=== PATIENT | female | born 1995 | race African-American/Black ===

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

== ENCOUNTER 2017-01-10 15:49 | Emergency (ER) | payer OTHER ==
[~2017-01-10] VITALS: Ht 165.1 cm; Wt 73.7 kg
[~2017-01-10 15:49] MED LIST changes: +SUDAFED 12-HOU120 MG PO; +ZYRTEC10 M2 PO
[2017-01-10 16:15] LABS: MCHC 32.8 G/DL (30.0-36.0); MCV 82.5 FL (83-99); RBC DIS.WIDTH-CV 13.8 % (11.8-14.6); RED BLOOD COUNT 4.85 M/uL (3.80-5.20); WHITE BLOOD COUNT 6.9 K/uL (4.1-10.2)
[2017-01-10 16:38] LABS: QUANTITATIVE HCG < 4.0 MIU/ML
[2017-01-10 16:41] LABS: CHLORIDE 105 mEq/L (99-109); POTASSIUM 4.2 mEq/L (3.7-5.4); SODIUM 137 mEq/L (136-147)
[2017-01-10 16:43] LABS: GLUCOSE 94 mg/dL (70-99)
[2017-01-10 16:44] LABS: ANION GAP 9 MEQ/L (2-14)
[2017-01-10 16:45] LABS: TOTAL BILIRUBIN 0.4 mg/dL (0.0-1.0)
[2017-01-10 16:47] LABS: ALKALINE PHOSPHATASE 66 IU/L (3-129); GFR ESTIMATE (CALCULATED) > 59 mL/min/
[2017-01-10 16:48] LABS: UREA NITROGEN (BUN) 11 mg/dL (9-23)
[2017-01-10 16:50] LABS: LIPASE 38 U/L (1.0-51.0)
[2017-01-10 17:25] LABS: ADD MIUA? YES; BILIRUBIN NEGATIVE; BLOOD NEGATIVE; COLOR YELLOW ((YELLOW)); GLUCOSE (STRIP) NEGATIVE; KETONES NEGATIVE; LEUKOCYTES SMALL; NITRITE NEGATIVE; PROTEIN (STRIP) NEGATIVE; SPECIFIC GRAVITY 1.023 (1.000-1.030)
[2017-01-10 17:27] LABS: MEAN PLAT.VOLUME 11.8 uM^3 (9.5-12.4); PLAT.SUFFICIENCY ADEQUATE; PLATELET COUNT 200 K/uL (156-360)
[2017-01-10 17:52] LABS: BACTERIA RARE /HPF; CASTS NONE SEEN /LPF; EPITHELIAL CELLS 4+ /HPF; MUCUS 2+ /LPF; RED BLOOD CELLS NONE SEEN /HPF (0-5); UCUL ADDED? NO; WHITE BLOOD CELLS 0-5 /HPF (0-5)
[2017-01-10] MEDS ORDERED: BENTYL20 MG PO (20:04)
[2017-01-10] MEDS ORDERED: ZOFRAN ODT4 MG PO (20:04)
[2017-01-10] MEDS ORDERED: MOTRIN800 MG PO (21:01)
[2017-01-10 21:17] VITALS: BP 119/56
== END 2017-01-10 21:19 | disposition home or self-care (01) ==
LOC: EME 15:49
DX: R10.31 Right lower quadrant pain (principal); R11.2 Nausea with vomiting, unspecified; R30.0 Dysuria; R68.83 Chills (without fever)
CPT/HCPCS: 76856; 80053; 81003; 83690; 84702; 85027; 87086; 99281; 99284

== ENCOUNTER 2017-03-21 16:00 | Emergency (ER) | payer OTHER ==
[~2017-03-21] VITALS: Ht 165.1 cm; Wt 73.3 kg
[~2017-03-21 16:00] MED LIST changes: +BENTYL20 MG PO; +MOTRIN800 MG PO
[2017-03-21 17:17] LABS: HEMATOCRIT 39.1 % (36.0-46.0); MCH 27.4 PG (29.0-34.0); MEAN PLAT.VOLUME 11.7 uM^3 (9.5-12.4); PLATELET COUNT 184 K/uL (156-360); RBC DIS.WIDTH-CV 14.3 % (11.8-14.6); RBC DIS.WIDTH-SD 43.5 % (39-53); RED BLOOD COUNT 4.71 M/uL (3.80-5.20); WHITE BLOOD COUNT 7.2 K/uL (4.1-10.2)
[2017-03-21 17:26] LABS: CHLORIDE 109 mEq/L (99-109); POTASSIUM 4.2 mEq/L (3.7-5.4); SODIUM 140 mEq/L (136-147)
[2017-03-21 17:28] LABS: GLUCOSE 83 mg/dL (70-99)
[2017-03-21 17:30] LABS: ANION GAP 7 MEQ/L (2-14); TOTAL BILIRUBIN 0.2 mg/dL (0.0-1.0)
[2017-03-21 17:32] LABS: ALKALINE PHOSPHATASE 61 IU/L (3-129); GFR ESTIMATE (CALCULATED) > 59 mL/min/
[2017-03-21 17:33] LABS: UREA NITROGEN (BUN) 17 mg/dL (9-23)
[2017-03-21 17:35] LABS: LIPASE 39 U/L (1.0-51.0)
[2017-03-21 17:41] LABS: QUANTITATIVE HCG < 4.0 MIU/ML
[2017-03-21 18:01] LABS: ADD MIUA? YES; BILIRUBIN NEGATIVE; BLOOD SMALL; COLOR YELLOW ((YELLOW)); GLUCOSE (STRIP) NEGATIVE; KETONES NEGATIVE; LEUKOCYTES NEGATIVE; NITRITE NEGATIVE; PROTEIN (STRIP) NEGATIVE; SPECIFIC GRAVITY 1.021 (1.000-1.030); UROBILINOGEN 0.2 MG/DL (0.2-1.0)
[2017-03-21 18:06] LABS: BACTERIA NONE SEEN /HPF; EPITHELIAL CELLS RARE /HPF; MUCUS TRACE /LPF; RED BLOOD CELLS 0-5 /HPF (0-5); UCUL ADDED? NO; WHITE BLOOD CELLS 0-5 /HPF (0-5)
[2017-03-21] MEDS ORDERED: PONSTEL250 MG PO (23:14)
[2017-03-21] MEDS ORDERED: VIBRAMYCIN100 MG PO (23:33)
[2017-03-21 23:47] VITALS: BP 121/78
[2017-03-23 12:21] LABS: CHLAMYDIA TRACHOMATIS NEGATIVE; NEISSERIA GONORRHOEAE NEGATIVE
== END 2017-03-21 23:51 | disposition home or self-care (01) ==
LOC: EME 16:00
PROVIDERS: Physician Assistant
DX: N73.9 Female pelvic inflammatory disease, unspecified (principal); F17.200 Nicotine dependence, unspecified, uncomplicated; N83.201 Unspecified ovarian cyst, right side; N94.6 Dysmenorrhea, unspecified; F31.9 Bipolar disorder, unspecified
CPT/HCPCS: 76856; 80053; 81003; 83690; 84702; 85027; 87210; 87491; 87591; 99281; 99285; J0696; J3010

== ENCOUNTER 2017-04-15 10:38 | Emergency (ER) | payer OTHER ==
[~2017-04-15] VITALS: Ht 157.5 cm; Wt 70.9 kg
[~2017-04-15 10:38] MED LIST changes: +PONSTEL250 MG PO
[2017-04-15] MEDS ORDERED: PHENERGAN1.25 MG/ML PO (12:11)
[2017-04-15] MEDS ORDERED: BIAXIN500 MG PO (12:11)
[2017-04-15 13:13] LABS: EOSINOPHIL (%) 2.9 % (0-5); EOSINOPHIL COUNT 0.3 K/uL (0-0.3); HEMATOCRIT 42.5 % (36.0-46.0); IMMATURE GRANULOCYTE (%) 0.3 % (0.0-0.7); INSTRUMENT ABS NEUTROPHIL CT 6.4 K/uL; LYMPHOCYTE COUNT 1.7 K/uL (1.0-2.8); MCH 27.1 PG (29.0-34.0); MCHC 32.9 G/DL (30.0-36.0); MCV 82.4 FL (83-99); MONOCYTE (%) 8.3 % (3-12); MONOCYTE COUNT 0.8 K/uL (0-0.8); NEUTROPHIL (%) 69.6 % (45-76); NEUTROPHIL COUNT 6.4 K/uL (1.8-6.4); PLATELET COUNT 160 K/uL (156-360); RBC DIS.WIDTH-CV 13.4 % (11.8-14.6); RBC DIS.WIDTH-SD 40.3 % (39-53); RED BLOOD COUNT 5.16 M/uL (3.80-5.20); WHITE BLOOD COUNT 9.2 K/uL (4.1-10.2)
[2017-04-15 13:21] LABS: CHLORIDE 103 mEq/L (99-109); POTASSIUM 3.2 mEq/L (3.7-5.4); SODIUM 138 mEq/L (136-147)
[2017-04-15 13:22] LABS: GLUCOSE 88 mg/dL (70-99)
[2017-04-15 13:24] LABS: ANION GAP 13 MEQ/L (2-14)
[2017-04-15 13:26] LABS: GFR ESTIMATE (CALCULATED) > 59 mL/min/
[2017-04-15 13:27] LABS: UREA NITROGEN (BUN) 8 mg/dL (9-23)
[2017-04-15] MEDS ORDERED: PREDNISONE50 MG PO ×2 (13:51→14:11)
[2017-04-15] MEDS ORDERED: PROAIR HFA8.5 GM IH ×2 (13:51→14:11)
[2017-04-15 14:15] VITALS: BP 121/66
== END 2017-04-15 14:39 | disposition home or self-care (01) ==
LOC: EME 10:38
PROVIDERS: Emergency Medicine
DX: J20.9 Acute bronchitis, unspecified (principal); R06.2 Wheezing; Z87.891 Personal history of nicotine dependence
CPT/HCPCS: 71020; 80048; 85025; 85379; 93005; 94640; 99281; 99284; J7512

== ENCOUNTER 2017-04-28 15:06 | Emergency (ER) | payer OTHER ==
[~2017-04-28] VITALS: Ht 162.6 cm; Wt 70.1 kg
[~2017-04-28 15:06] MED LIST changes: +BIAXIN500 MG PO; +PHENERGAN1.25 MG/ML PO; +PREDNISONE50 MG PO; +PROAIR HFA8.5 GM IH
[2017-04-28 16:40] LABS: EOSINOPHIL (%) 0.8 % (0-5); EOSINOPHIL COUNT 0.1 K/uL (0-0.3); IMMATURE GRANULOCYTE (%) 0.2 % (0.0-0.7); INSTRUMENT ABS NEUTROPHIL CT 6.2 K/uL; LYMPHOCYTE COUNT 1.1 K/uL (1.0-2.8); MEAN PLAT.VOLUME 11.5 uM^3 (9.5-12.4); MONOCYTE (%) 12.7 % (3-12); MONOCYTE COUNT 1.1 K/uL (0-0.8); NEUTROPHIL (%) 73.6 % (45-76); NEUTROPHIL COUNT 6.2 K/uL (1.8-6.4); PLATELET COUNT 162 K/uL (156-360); RBC DIS.WIDTH-CV 13.7 % (11.8-14.6); RBC DIS.WIDTH-SD 40.9 % (39-53); RED BLOOD COUNT 4.88 M/uL (3.80-5.20); WHITE BLOOD COUNT 8.4 K/uL (4.1-10.2)
[2017-04-28 16:50] LABS: CHLORIDE 107 mEq/L (99-109); POTASSIUM 3.4 mEq/L (3.7-5.4); SODIUM 138 mEq/L (136-147)
[2017-04-28 16:52] LABS: GLUCOSE 86 mg/dL (70-99)
[2017-04-28 16:53] LABS: ANION GAP 9 MEQ/L (2-14)
[2017-04-28 16:54] LABS: TOTAL BILIRUBIN 0.5 mg/dL (0.0-1.0)
[2017-04-28 16:55] LABS: SERUM ETHYL ALCOHOL < 10 mg/dL
[2017-04-28 16:56] LABS: ALKALINE PHOSPHATASE 69 IU/L (3-129); GFR ESTIMATE (CALCULATED) > 59 mL/min/
[2017-04-28 16:57] LABS: UREA NITROGEN (BUN) 8 mg/dL (9-23)
[2017-04-28 16:59] LABS: LIPASE 19 U/L (1.0-51.0)
[2017-04-28 17:12] LABS: INTERNAL CONTROL VALID? YES; MONOSPOT (MONONUCLEOSIS SEROL) NEGATIVE
[2017-04-28] MEDS ORDERED: AZITHROMYCIN250 MG1 PO (19:31)
[2017-04-28 20:02] VITALS: BP 110/69
== END 2017-04-28 20:04 | disposition home or self-care (01) ==
LOC: EME 15:06
PROVIDERS: Emergency Medicine
DX: B34.9 Viral infection, unspecified (principal); J02.0 Streptococcal pharyngitis; Z86.61 Personal history of infections of the central nervous system; Z87.891 Personal history of nicotine dependence
CPT/HCPCS: 71010; 80053; 83690; 85025; 86308; 87081; 87651 90; 99281; 99284; G0480; J1885

== ENCOUNTER 2017-06-24 21:38 | Emergency (ER) | payer OTHER ==
[~2017-06-24] VITALS: Ht 167.6 cm; Wt 70.0 kg
[~2017-06-24 21:38] MED LIST changes: +AZITHROMYCIN250 MG1 PO
[2017-06-24 22:23] LABS: MCHC 33.3 G/DL (30.0-36.0); MCV 83.9 FL (83-99); MEAN PLAT.VOLUME 11.9 uM^3 (9.5-12.4); PLATELET COUNT 199 K/uL (156-360); RBC DIS.WIDTH-CV 13.5 % (11.8-14.6); RBC DIS.WIDTH-SD 41.8 % (39-53); RED BLOOD COUNT 4.65 M/uL (3.80-5.20); WHITE BLOOD COUNT 6.7 K/uL (4.1-10.2)
[2017-06-24 22:56] LABS: QUANTITATIVE HCG < 4.0 MIU/ML
[2017-06-24 22:58] LABS: ANION GAP 6 MEQ/L (2-14); CHLORIDE 105 MEQ/L (99-109); POTASSIUM 3.7 MEQ/L (3.7-5.4); SAMPLE HEMOLYSIS CHECK 0; SAMPLE ICTERIC CHECK 0; SAMPLE LIPEMIA CHECK 0; SODIUM 137 MEQ/L (136-147); TOTAL BILIRUBIN 0.5 MG/DL (0.0-1.0)
[2017-06-24 23:03] LABS: ALKALINE PHOSPHATASE 52 IU/L (3-129); GFR ESTIMATE (CALCULATED) > 59 mL/min/; GLUCOSE 86 mg/dL (70-99); UREA NITROGEN (BUN) 10 mg/dL (9-23)
[2017-06-24 23:14] LABS: BILIRUBIN NEGATIVE; BLOOD NEGATIVE; COLOR YELLOW ((YELLOW)); GLUCOSE (STRIP) NEGATIVE; KETONES NEGATIVE; LEUKOCYTES NEGATIVE; NITRITE NEGATIVE; PROTEIN (STRIP) 30; SPECIFIC GRAVITY 1.021 (1.000-1.030); UROBILINOGEN 0.2 MG/DL (0.2-1.0)
[2017-06-24 23:15] LABS: ADD MIUA? NO; UCUL ADDED? NO
[2017-06-24 23:57] LABS: LIPASE 30 U/L (1.0-51.0)
[2017-06-25] MEDS ORDERED: ZANTAC150 MG PO (00:09)
[2017-06-25] MEDS ORDERED: ZOFRAN4 MG PO (00:09)
[2017-06-25 00:16] VITALS: BP 120/87
== END 2017-06-25 00:17 | disposition home or self-care (01) ==
LOC: EME 21:38
DX: K21.9 Gastro-esophageal reflux disease without esophagitis (principal); F32.9 Major depressive disorder, single episode, unspecified; Z87.891 Personal history of nicotine dependence
CPT/HCPCS: 80053; 81003; 83690; 84702; 85027; 99281; 99284

== ENCOUNTER 2017-08-21 18:55 | Emergency (ER) | payer OTHER ==
[~2017-08-21] VITALS: Ht 167.6 cm; Wt 71.1 kg
[~2017-08-21 18:55] MED LIST changes: +ZANTAC150 MG PO
[2017-08-21 19:25] LABS: ADD MIUA? NO; BILIRUBIN NEGATIVE; BLOOD NEGATIVE; COLOR YELLOW ((YELLOW)); GLUCOSE (STRIP) NEGATIVE; KETONES NEGATIVE; LEUKOCYTES NEGATIVE; NITRITE NEGATIVE; PROTEIN (STRIP) NEGATIVE; SPECIFIC GRAVITY 1.015 (1.000-1.030); UCUL ADDED? NO; UROBILINOGEN 0.2 MG/DL (0.2-1.0)
[2017-08-21 19:33] LABS: HEMATOCRIT 39.7 % (36.0-46.0); MCH 27.8 PG (29.0-34.0); MCV 84.3 FL (83-99); RBC DIS.WIDTH-CV 13.4 % (11.8-14.6); RBC DIS.WIDTH-SD 41.5 % (39-53); RED BLOOD COUNT 4.71 M/uL (3.80-5.20); WHITE BLOOD COUNT 7.6 K/uL (4.1-10.2)
[2017-08-21 19:43] LABS: CHLORIDE 106 mEq/L (99-109); POTASSIUM 3.7 mEq/L (3.7-5.4); SODIUM 139 mEq/L (136-147)
[2017-08-21 19:45] LABS: GLUCOSE 64 mg/dL (70-99)
[2017-08-21 19:46] LABS: ANION GAP 9 MEQ/L (2-14)
[2017-08-21 19:47] LABS: TOTAL BILIRUBIN 0.2 mg/dL (0.0-1.0)
[2017-08-21 19:48] LABS: ALKALINE PHOSPHATASE 62 IU/L (3-129)
[2017-08-21 19:49] LABS: GFR ESTIMATE (CALCULATED) > 59 mL/min/
[2017-08-21 19:50] LABS: UREA NITROGEN (BUN) 9 mg/dL (9-23)
[2017-08-21 19:52] LABS: LIPASE 42 U/L (1.0-51.0)
[2017-08-21 20:00] LABS: QUANTITATIVE HCG < 4.0 MIU/ML
[2017-08-21 20:53] LABS: MEAN PLAT.VOLUME 11.9 uM^3 (9.5-12.4); PLAT.SUFFICIENCY ADEQUATE; PLATELET COUNT 211 K/uL (156-360)
[2017-08-21 22:15] VITALS: BP 118/69
== END 2017-08-21 22:16 | disposition home or self-care (01) ==
LOC: EME 18:55
DX: K59.00 Constipation, unspecified (principal); R10.31 Right lower quadrant pain; F32.9 Major depressive disorder, single episode, unspecified; Z87.891 Personal history of nicotine dependence
CPT/HCPCS: 74020; 80053; 81003; 83690; 84702; 85027; 99281; 99283

== ENCOUNTER 2017-08-28 23:22 | Emergency (ER) | payer OTHER ==
[~2017-08-28] VITALS: Ht 167.6 cm; Wt 71.1 kg
[2017-08-29 00:07] LABS: ADD MIUA? YES; BILIRUBIN NEGATIVE; BLOOD NEGATIVE; COLOR YELLOW ((YELLOW)); GLUCOSE (STRIP) NEGATIVE; KETONES NEGATIVE; LEUKOCYTES NEGATIVE; NITRITE NEGATIVE; PROTEIN (STRIP) 30; SPECIFIC GRAVITY 1.032 (1.000-1.030)
[2017-08-29 00:14] LABS: BACTERIA RARE /HPF; EPITHELIAL CELLS 2+ /HPF; MUCUS 3+ /LPF; RED BLOOD CELLS 0-5 /HPF (0-5); UCUL ADDED? NO; WHITE BLOOD CELLS 0-5 /HPF (0-5)
[2017-08-29 00:20] LABS: HEMATOCRIT 37.1 % (36.0-46.0); MCH 27.8 PG (29.0-34.0); MCHC 33.2 G/DL (30.0-36.0); MCV 83.9 FL (83-99); MEAN PLAT.VOLUME 11.4 uM^3 (9.5-12.4); PLATELET COUNT 187 K/uL (156-360); RBC DIS.WIDTH-CV 13.2 % (11.8-14.6); RBC DIS.WIDTH-SD 40.7 % (39-53); RED BLOOD COUNT 4.42 M/uL (3.80-5.20)
[2017-08-29 00:43] LABS: CHLORIDE 103 mEq/L (99-109); POTASSIUM 3.5 mEq/L (3.7-5.4); SODIUM 137 mEq/L (136-147)
[2017-08-29 00:46] LABS: GLUCOSE 79 mg/dL (70-99)
[2017-08-29 00:47] LABS: ANION GAP 9 MEQ/L (2-14)
[2017-08-29 00:48] LABS: TOTAL BILIRUBIN 0.4 mg/dL (0.0-1.0)
[2017-08-29 00:49] LABS: ALKALINE PHOSPHATASE 60 IU/L (3-129); GFR ESTIMATE (CALCULATED) > 59 mL/min/
[2017-08-29 00:50] LABS: UREA NITROGEN (BUN) 14 mg/dL (9-23)
[2017-08-29 00:53] LABS: LIPASE 23 U/L (1.0-51.0)
[2017-08-29 00:58] LABS: QUANTITATIVE HCG < 4.0 MIU/ML
[2017-08-29] MEDS ORDERED: NORCO 5/3251 TABLET PO (03:16)
[2017-08-29] MEDS ORDERED: FLAGYL500 MG PO (03:38)
[2017-08-29 04:27] VITALS: BP 145/83
== END 2017-08-29 04:28 | disposition home or self-care (01) ==
LOC: EME 23:22
PROVIDERS: Emergency Medicine
DX: N76.0 Acute vaginitis (principal); F32.9 Major depressive disorder, single episode, unspecified; F31.9 Bipolar disorder, unspecified; Z86.61 Personal history of infections of the central nervous system; Z87.891 Personal history of nicotine dependence
CPT/HCPCS: 76856; 80053; 81003; 83690; 84702; 85027; 99281; 99284

== ENCOUNTER 2017-09-27 21:45 | Emergency (ER) | payer OTHER ==
[~2017-09-27] VITALS: Ht 167.6 cm; Wt 72.3 kg
[~2017-09-27 21:45] MED LIST changes: +FLAGYL500 MG PO
[2017-09-28 00:56] LABS: HEMATOCRIT 38.9 % (36.0-46.0); HEMOGLOBIN 12.9 G/DL (11.9-15.5); MCH 27.8 PG (29.0-34.0); MCHC 33.2 G/DL (30.0-36.0); MCV 83.8 FL (83-99); RBC DIS.WIDTH-CV 13.4 % (11.8-14.6); RBC DIS.WIDTH-SD 41.3 % (39-53); RED BLOOD COUNT 4.64 M/uL (3.80-5.20)
[2017-09-28 01:09] LABS: CHLORIDE 107 mEq/L (99-109); POTASSIUM 3.8 mEq/L (3.7-5.4); SODIUM 136 mEq/L (136-147)
[2017-09-28 01:11] LABS: GLUCOSE 84 mg/dL (70-99)
[2017-09-28 01:15] LABS: CREATININE 0.8 mg/dL (0.6-1.3); GFR ESTIMATE (CALCULATED) > 59 mL/min/
[2017-09-28 01:16] LABS: UREA NITROGEN (BUN) 10 mg/dL (9-23)
[2017-09-28 01:24] LABS: QUANTITATIVE HCG < 4.0 MIU/ML
[2017-09-28 01:48] LABS: PLAT.SUFFICIENCY DECREASED; PLATELET COUNT 154 K/uL (156-360)
[2017-09-28 02:25] VITALS: BP 101/69
[2017-09-28 08:10] LABS: THYROTROPIN (TSH) 2.6 MIU/L (0.4-5.5)
== END 2017-09-28 02:26 | disposition home or self-care (01) ==
LOC: EME 21:45
PROVIDERS: Physician Assistant Medical
DX: B34.9 Viral infection, unspecified (principal); F32.9 Major depressive disorder, single episode, unspecified; Z87.891 Personal history of nicotine dependence
CPT/HCPCS: 80048; 84443; 84702; 85027; 99281; 99284

== ENCOUNTER 2017-12-23 00:42 | Emergency (ER) | payer OTHER ==
[~2017-12-23] VITALS: Ht 167.6 cm; Wt 73.0 kg
[2017-12-23 01:38] LABS: BASOPHIL (%) 0.5 % (0-1); EOSINOPHIL (%) 4.1 % (0-5); EOSINOPHIL COUNT 0.3 K/uL (0-0.3); HEMATOCRIT 36.2 % (36.0-46.0); HEMOGLOBIN 12.1 G/DL (11.9-15.5); IMMATURE GRANULOCYTE (%) 0.2 % (0.0-0.7); LYMPHOCYTE (%) 34.2 % (15-42); LYMPHOCYTE COUNT 2.3 K/uL (1.0-2.8); MCH 27.6 PG (29.0-34.0); MCHC 33.4 G/DL (30.0-36.0); MCV 82.6 FL (83-99); MONOCYTE (%) 10.6 % (3-12); MONOCYTE COUNT 0.7 K/uL (0-0.8); NEUTROPHIL (%) 50.4 % (45-76); NEUTROPHIL COUNT 3.3 K/uL (1.8-6.4); PLATELET COUNT 174 K/uL (156-360); RBC DIS.WIDTH-CV 13.9 % (11.8-14.6); RBC DIS.WIDTH-SD 42.1 % (39-53); RED BLOOD COUNT 4.38 M/uL (3.80-5.20); WHITE BLOOD COUNT 6.6 K/uL (4.1-10.2)
[2017-12-23 01:47] LABS: ALBUMIN 3.9 g/dL (3.2-4.8)
[2017-12-23 01:48] LABS: CHLORIDE 106 mEq/L (99-109); POTASSIUM 3.7 mEq/L (3.7-5.4); SODIUM 137 mEq/L (136-147)
[2017-12-23 01:50] LABS: GLUCOSE 62 mg/dL (70-99); TOTAL PROTEIN 6.7 g/dL (6.4-8.3)
[2017-12-23 01:52] LABS: TOTAL BILIRUBIN 0.2 mg/dL (0.0-1.0)
[2017-12-23 01:53] LABS: ALKALINE PHOSPHATASE 58 IU/L (3-129)
[2017-12-23 01:54] LABS: CREATININE 1.1 mg/dL (0.6-1.3); GFR ESTIMATE (CALCULATED) > 59 mL/min/
[2017-12-23 01:55] LABS: AST (GOT) 17 IU/L (2-34); UREA NITROGEN (BUN) 13 mg/dL (9-23)
[2017-12-23 01:56] LABS: APPEARANCE SL.HAZY ((CLEAR)); BILIRUBIN NEGATIVE; BLOOD NEGATIVE; COLOR YELLOW ((YELLOW)); GLUCOSE (STRIP) NEGATIVE; KETONES NEGATIVE; LEUKOCYTES NEGATIVE; NITRITE NEGATIVE; PROTEIN (STRIP) 30; SPECIFIC GRAVITY 1.027 (1.000-1.030)
[2017-12-23 01:57] LABS: ALT (GPT) 9 IU/L (3-49)
[2017-12-23 01:58] LABS: BACTERIA NONE SEEN /HPF; EPITHELIAL CELLS 2+ /HPF; MUCUS 1+ /LPF; RED BLOOD CELLS 0-5 /HPF (0-5); UCUL ADDED? NO; WHITE BLOOD CELLS 0-5 /HPF (0-5)
[2017-12-23 02:03] LABS: QUANTITATIVE HCG 3788.1 MIU/ML
[2017-12-23 02:51] VITALS: BP 119/87
== END 2017-12-23 02:51 | disposition home or self-care (01) ==
LOC: EME 00:42
PROVIDERS: Emergency Medicine
DX: O20.0 Threatened abortion (principal); O26.891 Other specified pregnancy related conditions, first trimester; G43.909 Migraine, unspecified, not intractable, without status migrainosus; E16.2 Hypoglycemia, unspecified; Z3A.00 Weeks of gestation of pregnancy not specified; Z87.891 Personal history of nicotine dependence; Z86.61 Personal history of infections of the central nervous system
CPT/HCPCS: 76801; 80053; 81003; 84702; 85025; 86900; 86901; 99281; 99284; J0780

== ENCOUNTER 2018-01-14 22:43 | Emergency (ER) | payer OTHER ==
[~2018-01-14] VITALS: Ht 167.6 cm; Wt 74.0 kg
[2018-01-14 23:54] LABS: HEMATOCRIT 38.7 % (36.0-46.0); HEMOGLOBIN 13.2 G/DL (11.9-15.5); MCH 27.6 PG (29.0-34.0); MCHC 34.1 G/DL (30.0-36.0); PLATELET COUNT 203 K/uL (156-360); RBC DIS.WIDTH-CV 13.6 % (11.8-14.6); RBC DIS.WIDTH-SD 39.8 % (39-53); RED BLOOD COUNT 4.78 M/uL (3.80-5.20); WHITE BLOOD COUNT 7.5 K/uL (4.1-10.2)
[2018-01-15 00:17] VITALS: BP 121/70
[2018-01-16] MEDS ORDERED: PERCOCET 5/31 TABLET PO (14:53)
== END 2018-01-15 00:19 | disposition home or self-care (01) ==
LOC: EME 22:43
PROVIDERS: Physician Assistant
DX: O03.4 Incomplete spontaneous abortion without complication (principal); F32.9 Major depressive disorder, single episode, unspecified; F31.9 Bipolar disorder, unspecified; Z87.891 Personal history of nicotine dependence; Z86.61 Personal history of infections of the central nervous system
CPT/HCPCS: 76801; 81003; 84702; 85027; 99281; 99283

== ENCOUNTER 2018-01-16 06:39 | Emergency (ER) | payer OTHER ==
[~2018-01-16] VITALS: Ht 167.6 cm; Wt 73.8 kg
[2018-01-16 07:21] LABS: HEMATOCRIT 36.4 % (36.0-46.0); HEMOGLOBIN 12.1 G/DL (11.9-15.5); MCH 27.4 PG (29.0-34.0); MCHC 33.2 G/DL (30.0-36.0); MCV 82.4 FL (83-99); RBC DIS.WIDTH-CV 13.8 % (11.8-14.6); RBC DIS.WIDTH-SD 41.1 % (39-53); RED BLOOD COUNT 4.42 M/uL (3.80-5.20); WHITE BLOOD COUNT 5.2 K/uL (4.1-10.2)
[2018-01-16 07:54] LABS: CHLORIDE 106 MEQ/L (99-109); CREATININE 0.7 MG/DL (0.6-1.3); GFR ESTIMATE (CALCULATED) > 59 mL/min/; GLUCOSE 92 mg/dL (70-99); POTASSIUM 3.7 MEQ/L (3.7-5.4); SODIUM 136 MEQ/L (136-147); UREA NITROGEN (BUN) 11 mg/dL (9-23)
[2018-01-16 08:02] LABS: PLAT.SUFFICIENCY ADEQUATE; PLATELET COUNT 158 K/uL (156-360)
[2018-01-16 08:49] LABS: QUANTITATIVE HCG 14288.9 MIU/ML
[2018-01-16 14:46] VITALS: BP 115/74
[2018-01-16] MEDS ORDERED: PERCOCET 5/31 TABLET PO (14:53)
== END 2018-01-16 14:56 | disposition home or self-care (01) ==
LOC: EME 06:39
PROVIDERS: Emergency Medicine
DX: O03.9 Complete or unspecified spontaneous abortion without complication (principal); F32.9 Major depressive disorder, single episode, unspecified; Z87.891 Personal history of nicotine dependence
CPT/HCPCS: 76801; 80048; 84702; 85027; 88305; 99281; 99284

== ENCOUNTER 2018-05-07 21:16 | Emergency (ER) | payer OTHER ==
[~2018-05-07] VITALS: Ht 167.6 cm; Wt 74.1 kg
[2018-05-07 22:10] LABS: HEMATOCRIT 37.2 % (36.0-46.0); MCHC 32.3 G/DL (30.0-36.0); MCV 80.5 FL (83-99); PLATELET COUNT 182 K/uL (156-360); RBC DIS.WIDTH-CV 14.2 % (11.8-14.6); RBC DIS.WIDTH-SD 41.6 % (39-53); RED BLOOD COUNT 4.62 M/uL (3.80-5.20)
[2018-05-07 22:23] LABS: CHLORIDE 110 mEq/L (99-109); POTASSIUM 3.9 mEq/L (3.7-5.4); SODIUM 140 mEq/L (136-147)
[2018-05-07 22:26] LABS: GLUCOSE 69 mg/dL (70-99); TOTAL PROTEIN 7.2 g/dL (6.4-8.3)
[2018-05-07 22:28] LABS: TOTAL BILIRUBIN 0.3 mg/dL (0.0-1.0)
[2018-05-07 22:29] LABS: ALKALINE PHOSPHATASE 57 IU/L (3-129); GFR ESTIMATE (CALCULATED) > 59 mL/min/
[2018-05-07 22:30] LABS: UREA NITROGEN (BUN) 11 mg/dL (9-23)
[2018-05-07 22:31] LABS: AST (GOT) 18 IU/L (2-34)
[2018-05-07 22:32] LABS: ALT (GPT) 10 IU/L (3-49)
[2018-05-07 22:33] LABS: APPEARANCE CLEAR ((CLEAR)); BILIRUBIN NEGATIVE; BLOOD NEGATIVE; COLOR YELLOW ((YELLOW)); GLUCOSE (STRIP) NEGATIVE; KETONES NEGATIVE; LEUKOCYTES SMALL; NITRITE NEGATIVE; PROTEIN (STRIP) NEGATIVE; SPECIFIC GRAVITY 1.018 (1.000-1.030); UROBILINOGEN 0.2 MG/DL (0.2-1.0)
[2018-05-07 22:39] LABS: QUANTITATIVE HCG < 4.0 MIU/ML
[2018-05-07 23:06] LABS: BACTERIA NONE SEEN /HPF; EPITHELIAL CELLS 1+ /HPF; MUCUS TRACE /LPF; RED BLOOD CELLS 0-5 /HPF (0-5); UCUL ADDED? NO; WHITE BLOOD CELLS 0-5 /HPF (0-5)
[2018-05-08 01:08] LABS: LIPASE 42 U/L (1.0-51.0)
[2018-05-08] MEDS ORDERED: PEPCID20 MG PO (01:34)
[2018-05-08 01:56] VITALS: BP 107/76
== END 2018-05-08 01:57 | disposition home or self-care (01) ==
LOC: RME 21:16 → EME 21:16 → RME 05-08 01:57
DX: R10.11 Right upper quadrant pain (principal); K76.0 Fatty (change of) liver, not elsewhere classified; F32.9 Major depressive disorder, single episode, unspecified; F31.9 Bipolar disorder, unspecified; F17.200 Nicotine dependence, unspecified, uncomplicated; Z86.69 Personal history of other diseases of the nervous system and sense organs; Z87.2 Personal history of diseases of the skin and subcutaneous tissue; Z98.890 Other specified postprocedural states
CPT/HCPCS: 76705; 80053; 81003; 83690; 84702; 85027; 99281; 99285; J1885